=== PATIENT | male | born 1965 | race African-American/Black ===

== ENCOUNTER 2017-03-21 16:57 | Emergency (ER) | payer OTHER ==
[~2017-03-21] VITALS: Ht 172.7 cm; Wt 88.0 kg
[~2017-03-21 16:57] MED LIST: DARV PO; IBUP-238 PO; METH750T2 PO; Z.0.NO CURRENT MEDS
[2017-03-21 16:59] VITALS: BP 158/104; PULSE 69; RESP 20; TEMP 97.7; O2SAT 100
[2017-03-21 17:26] LABS: BLOOD, URINE NEG (NEG); GLUCOSE,URINE NEG (NEG); KETONE, URINE NEG (NEG); NITRITE,URINE NEG (NEG); SQUAMOUS EPITHELIAL CELL URINE <1 /hpf (0-5); URINE COLOR YELLOW (YELLW/STRAW)
--- NOTE | 2017-03-21 17:27 | PD ---
HPI . left hip pain/buttocks pain Chief Complaint: Back/ Neck Pain or Injury Time Seen by Provider: 17:27 Travel History International Travel<30 days: No Contact w/Intl Traveler<30days: No Traveled to known affect area: No History of Present Illness HPI 51-year-old male here with complaints of left hip and buttocks pain. Patient tells me that he thought something may have been wrong with his kidney, which is what prompted him to come in to the emergency department. He says that he had something kind of similar to this earlier this year and has in hand with him a CT scan of the abdomen and pelvis report and labs. I have reviewed those and there was no gross abnormalities. He denies any abdominal pain, nausea, vomiting, diarrhea, urinary changes, or recent injury. He has been using ibuprofen and heat which seemed to alleviate his symptoms. [facility] Social History Alcohol Use: No Tobacco Use: No Substance Use: No Allergies-Medications (Allergen,Severity, Reaction): Coded Allergies: No Known Allergies (Verified , 03/21/17) Reported Meds & Prescriptions Reported Meds & Active Scripts Active Robaxin (Methocarbamol) 750 Mg Tab 750 Mg PO QIDPRN Motrin (Ibuprofen) 800 Mg Tab 800 Mg PO TIDPRN FOR PAIN Darvocet-N 100 (Propoxyphene Napsylate/Acetam) Tab 1 Tab PO Q6HPRN FOR PAIN Reported No Current Meds (Miscellaneous Medication) Misc Review of Systems General / Constitutional: No: Fever Eyes: No: Visual changes HENT: No: Headaches Cardiovascular: No: Chest Pain or Discomfort Respiratory: No: Shortness of Breath Gastrointestinal: No: Nausea, Vomiting, Diarrhea, Abdominal Pain, Constipation , Changes in Bowel Habits Genitourinary: No: Urgency, Frequency, Dysuria, Hesitancy, Dribbling, Incontinence Musculoskeletal: No: Pain Skin: No Rash Neurologic: No: Weakness Psychiatric: No: Depression Endocrine: No: Polydipsia Hematologic/Lymphatic: No: Easy Bruising Physical Exam Narrative GENERAL: AAO x 3, no acute distress, Well-nourished, well-developed patient. SKIN: Warm and dry. No visible rashes or bruising. HEAD: Normocephalic and atraumatic. EYES: No scleral icterus. No injection or drainage. ENT: No nasal drainage noted. Mucous membranes pink. Airway patent. NECK: Supple, trachea midline. No JVD. CARDIOVASCULAR: Regular rate and rhythm without murmurs, gallops, or rubs. RESPIRATORY: Breath sounds equal bilaterally. No accessory muscle use. No rhonchi or rales. GASTROINTESTINAL: Abdomen soft, non-tender, nondistended. No rebound or guarding. No Thomas's sign or McBurney's point tenderness. EXTREMITIES: No cyanosis or edema. Full range of motion of all joints. Ambulatory. BACK: Noobvious deformity. No CVA tenderness. No step-off NEURO: CN II-12 intact, cash manager strength normal b/l, UE and LE 5/5, no focal deficits PSYCH: AAO x 3, normal affect. Data Data Last Documented VS Vital Signs Date Time Temp Pulse Resp B/P (MAP) Pulse Ox O2 Delivery O2 Flow Rate FiO2 03/21/17 16:59 97.7 69 20 158/104 (122) 100 Room Air Orders Orders Urinalysis - C+S If Indicated (03/21/17 17:06) Labs Laboratory Tests Test 03/21/17 17:00 [facility] Medical Decision Making Medical Screen Exam Complete: Yes Emergency Medical Condition: Yes Medical Record Reviewed: Yes Differential Diagnosis muscle strain, less likely hip fracture, less likely sciatica, less likely acute abdomen Narrative Course 51-year-old male here with complaints of left hip pain and buttocks pain. On examination I do not see any gross abnormalities. This could be a possible strained muscle. I will provide him with some muscle relaxers to see if this alleviates his symptoms. he is currently not taking anything other than ibuprofen. I explained to him that his kidneys are located higher up and he has no CVA tenderness or urinary changes. I recommended follow-up with his primary care provider. recommend bp f/u. Patient verbalized understanding of instructions, questions were answered, and thanked me for their care. I advised them if their condition worsens, please return to the nearest emergency room for further care. Diagnosis Primary Impression: Pulled muscle Patient Instructions: General Instructions Additional Instructions: Muscle relaxers can cause drowsiness. Do not drive, swim or operate heavy machinery while using these medications. Please return to emergency department if your symptoms return or worsen. Follow up with your primary care provider. Take medications as prescribed. Scripts Methocarbamol (Robaxin) 500 Mg Tab 500 MG PO TID for Muscle Spasm for 12 Days, TAB 0 Refills Prov: Amie No 03/21/17 Disposition: 01 DISCHARGE HOME Condition: Stable Amie No Mar 21, 2017 17:27
[2017-03-21 17:36] LABS: COMMENT (UR) CULT NOT INDICATED; CULTURE IF INDICATED CULT NOT INDICATED
[2017-03-21] MEDS ORDERED: ROBA500T PO (17:38)
== END 2017-03-22 13:26 | disposition home or self-care (01) ==
LOC: NETRI 16:57 → EDTENT 03-22 13:26
DX: M25.552 Pain in left hip (principal)
CPT/HCPCS: 81001; 99283